=== PATIENT | female | born 1980 | race African-American/Black ===

== ENCOUNTER 2021-04-11 11:03 | Emergency (ER) | payer MEDICARE, MEDICAID ==
[~2021-04-11] VITALS: Ht 167.6 cm; Wt 63.5 kg
[2021-04-11] MEDS ORDERED: OLANZAPINE 10 MG/VIAL IM STA (11:20)
[2021-04-11] MEDS ORDERED: LORAZEPAM 2MG/ML CPJ IM STA (11:20)
[2021-04-11] MEDS ORDERED: DIPHENHYDRAMINE 50MG/ML VIAL IM STA (11:20)
[2021-04-11] MEDS ORDERED: SODIUM CHLORIDE 0.9% 1,000 ML IV ONE (11:30)
[2021-04-11 13:05] LABS: BASOPHILS % 0.4 % (0.0-2.0); EOSINOPHILS % 0.2 % (0.0-5.0); HEMATOCRIT. 36.5 % (36.0-48.0); HEMOGLOBIN. 11.8 g/dL (12.0-16.0); LYMPHOCYTES % 8.1 % (20.0-50.0); MEAN CORPUSCULAR HEMOGLOBIN 25.9 pg (28.0-32.0); MEAN CORPUSCULAR VOLUME 79.9 fL (81.0-99.0); MEAN PLATELET VOLUME 8.1 fl (7.4-10.4); MONOCYTES % 5.1 % (2.0-8.0); NEUTROPHILS % 86.2 % (40.0-76.0); PLATELET 376 x1000/uL (130-400); RED BLOOD CELL COUNT 4.56 mill/uL (4.2-5.4); RED CELL DISTRIBUTION WIDTH 19.2 % (11.6-14.6)
[2021-04-11 13:08] LABS: CLARITY URINE CLEAR (CLEAR); COLOR URINE YELLOW (YELLOW); KETONES URINE 1+ (NEGATIVE); LEUKOCYTE ESTERASE URINE NEGATIVE (NEGATIVE); NITRITE URINE NEGATIVE (NEGATIVE); OCCULT BLOOD URINE NEGATIVE (NEGATIVE); PH URINE 5.5 (4.5-8.0); PROTEIN URINE NEGATIVE (NEGATIVE); SPECIFIC GRAVITY URINE 1.008 (1.005-1.030); UROBILINOGEN URINE 0.2 E.U./dL (0.2-1.0)
[2021-04-11 13:45] LABS: *AMPHETAMINES SCREEN URINE NEGATIVE (NEGATIVE); *BARBITURATES SCREEN URINE NEGATIVE (NEGATIVE); *BENZODIAZEPINES SCREEN URINE NEGATIVE (NEGATIVE); *COCAINE SCREEN URINE NEGATIVE (NEGATIVE); CANNABINOID URINE SCREEN NEGATIVE (NEGATIVE); METHADONE URINE SCREEN NEGATIVE (NEGATIVE); OPIATES URINE SCREEN NEGATIVE (NEGATIVE); PHENCYCLIDINE URINE SCREEN NEGATIVE (NEGATIVE)
[2021-04-11 14:14] LABS: CHLORIDE 114 mEq/L (98-107)
[2021-04-11 14:18] LABS: ETHANOL BLOOD < 10 mg/dL
[2021-04-11 14:19] LABS: HCG SCREEN NEGATIVE
[2021-04-11] MEDS: DIVALPROEX SODIUM 250MG DR TABLET PO SCH (21:00)
[2021-04-12] MEDS: DIVALPROEX SODIUM 250MG DR TABLET PO SCH ×3 (10:07→10:33)
[2021-04-12] MEDS: ARIPIPRAZOLE 5MG TABLET PO SCH ×2 (10:07→10:22)
[2021-04-12] MEDS ORDERED: LORAZEPAM 2MG/ML CPJ IM PRN (10:30)
[2021-04-12] MEDS ORDERED: ONDANSETRON 4MG ODT PO ONE (13:00)
[2021-04-12] MEDS ORDERED: KETOROLAC 60MG/2ML VIAL IM ONE (13:00)
[2021-04-12] MEDS ORDERED: LORAZEPAM 2MG/ML CPJ IM ONE (13:00)
[2021-04-12] MEDS ORDERED: HALOPERIDOL LACTATE 5MG/ML VIAL IM ONE (14:00)
[2021-04-12] MEDS ORDERED: ACETAMINOPHEN 325MG TABLET PO ONE (19:45)
[2021-04-12] MEDS ORDERED: ONDANSETRON HCL 4MG TABLET PO ONE (19:45)
[2021-04-13] MEDS ORDERED: ACETAMINOPHEN 500MG TABLET PO ONE (05:30)
[2021-04-14] MEDS ORDERED: HALOPERIDOL LACTATE 5MG/ML VIAL IM NR (03:45)
[2021-04-14] MEDS: DIVALPROEX SODIUM 250MG DR TABLET PO SCH (09:00)
[2021-04-14] MEDS: ARIPIPRAZOLE 5MG TABLET PO SCH (09:00)
[2021-04-14] MEDS ORDERED: LORAZEPAM 1MG TABLET PO ONE (09:30)
[2021-04-14 11:25] VITALS: BP 120/72
== END 2021-04-14 11:34 ==
LOC: ER 12:37
DX: F31.2 Bipolar disorder, current episode manic severe with psychotic features (principal); R45.1 Restlessness and agitation; Z20.822 Contact with and (suspected) exposure to COVID-19; Z91.14 Patient's other noncompliance with medication regimen; Z78.1 Physical restraint status; Z75.1 Person awaiting admission to adequate facility elsewhere
CPT/HCPCS: 36415; 70450; 74176; 80053; 80305; 80307; 80320; 80329; 81003; 84443; 84703; 85025; 93005; 96372; 99285; C9803; J1200; J1630; J2060; J3490; J7030; U0003; U0005; G0480